=== PATIENT | female | born 1970 | race Two or more races ===

== ENCOUNTER 2023-03-06 11:35 | Emergency (ER) | payer OTHER ==
[~2023-03-06] VITALS: Ht 167.6 cm; Wt 91.0 kg
[2023-03-06] MEDS ORDERED: HYDROcodone-ACET 10/325MG TAB PO ONE (12:30)
[2023-03-06] MEDS ORDERED: KETOROLAC TROMETH 30 MG/ML 1ML VIAL IV ONE (12:30)
[2023-03-06 12:31] VITALS: RESP 20; O2SAT 98
[2023-03-06] MEDS ORDERED: TRAM50TA2 PO (13:13)
[2023-03-06 13:20] VITALS: BP 120/74; PULSE 72; RESP 16; TEMP 98.4; O2SAT 96
== END 2023-03-06 14:28 | disposition home or self-care (01) ==
LOC: EDBD 11:35 → ER 11:35
DX: S80.12XA Contusion of left lower leg, initial encounter (principal); R10.13 Epigastric pain; K21.9 Gastro-esophageal reflux disease without esophagitis; Z90.710 Acquired absence of both cervix and uterus; Z79.899 Other long term (current) drug therapy; W22.8XXA Striking against or struck by other objects, initial encounter; Y93.89 Activity, other specified; Y92.89 Other specified places as the place of occurrence of the external cause; Y99.8 Other external cause status
CPT/HCPCS: 29515; 73590; 73610; 93005; 99284; J1885

== ENCOUNTER 2024-02-02 10:47 | Emergency (ER) | payer OTHER ==
[~2024-02-02] VITALS: Ht 167.6 cm; Wt 87.0 kg
[~2024-02-02 10:47] MED LIST: TRAM50TA2 PO
[2024-02-02] MEDS: ACETAMINOPHEN 500 MG TAB PO ONE (12:00)
[2024-02-02 12:25] VITALS: BP 105/64; PULSE 68; RESP 18; TEMP 96.7; O2SAT 97
[2024-02-02] MEDS ORDERED: IBUP-1456 PO (12:27)
== END 2024-02-02 12:43 | disposition home or self-care (01) ==
LOC: ER 10:47
DX: S82.61XA Displaced fracture of lateral malleolus of right fibula, initial encounter for closed fracture (principal); S93.402A Sprain of unspecified ligament of left ankle, initial encounter; K21.9 Gastro-esophageal reflux disease without esophagitis; Z90.710 Acquired absence of both cervix and uterus; X50.1XXA Overexertion from prolonged static or awkward postures, initial encounter; Y93.89 Activity, other specified; Y92.69 Other specified industrial and construction area as the place of occurrence of the external cause; Y99.8 Other external cause status
CPT/HCPCS: 29515; 73610

== ENCOUNTER 2024-02-04 09:30 | Emergency (ER) | payer OTHER ==
[~2024-02-04] VITALS: Ht 167.6 cm; Wt 87.2 kg
[~2024-02-04 09:30] MED LIST changes: +IBUP-1456 PO
[2024-02-04 10:54] VITALS: BP 120/69; PULSE 57; RESP 18; TEMP 97.9; O2SAT 96
[2024-02-04] MEDS ORDERED: IBUPROFEN 800 MG TAB PO PRN (11:15)
[2024-02-04] MEDS: KETOROLAC TROMETH 30 MG/ML 1ML VIAL IV ONE (11:23)
== END 2024-02-04 14:32 | disposition home or self-care (01) ==
LOC: ER 09:41
DX: S93.492D Sprain of other ligament of left ankle, subsequent encounter (principal); M25.571 Pain in right ankle and joints of right foot; R22.41 Localized swelling, mass and lump, right lower limb; K21.9 Gastro-esophageal reflux disease without esophagitis; Z90.710 Acquired absence of both cervix and uterus; Z79.899 Other long term (current) drug therapy; X58.XXXD Exposure to other specified factors, subsequent encounter
CPT/HCPCS: 73600; 96374; 99283; J1885